=== PATIENT | male | born 1980 | race Caucasian/White ===

== ENCOUNTER 2018-09-12 12:52 | Emergency (ER) | payer SELFPAY ==
--- NOTE | 2018-09-12 13:17 | ER Document Report ---
ED General - General Stated Complaint: PSYCH Time Seen by Provider: 09/12/18 13:08 Notes: Patient is a 37-year-old male with history of bipolar disorder that presents to the emergency department for chief complaint of psychiatric issues. Patient apparently has been off of his medication for total 2 weeks, was at a store today, was "talking to a twig" according to bystanders, and he was hyperventilating and diaphoretic per EMS, he was given a dose of 25 mg of Benad ryl, 1 mg of Ativan, and 5 mill grams of Haldol. At this time the patient is withdrawn, not wanting to answer many questions. He denies any complaints at this time, denies suicidal or homicidal ideations, denies hearing any voices, or having any delusions. He denies any recent illnesses, fevers, chills, cough, nausea, vomiting or abdominal pain. He reports that he was previously on Seroquel, 400 mg and he would take a third of a tablet at night to help him sleep. Past Medical History: Bipolar disorder Past Surgical History: Denies pertinent surgical history Social History: Admits to smoking cigarettes, denies alcohol or drug use. Family History: Reviewed and noncontributory for presenting illness Allergies: Reviewed, see documented allergy list. REVIEW OF SYSTEMS: Other than noted above, the 12 point review of systems was reviewed with the patient and were negative, all pertinent findings are included in the HPI. PHYSICAL EXAMINATION: Vital signs reviewed, nursing noted reviewed. GENERAL: Well-appearing, well-nourished and in no acute distress. HEAD: Atraumatic, normocephalic. EYES: Eyes appear normal, extraocular movements intact, sclera anicteric, conjunctiva are normal. ENT: nares patent, oropharynx clear without exudates. Moist mucous membranes. NECK: Normal range of motion, supple without lymphadenopathy LUNGS: Breath sounds clear to auscultation bilaterally and equal. No wheezes rales or rhonchi. HEART: Regular rate and rhythm without murmurs ABDOMEN: Soft, nontender, normoactive bowel sounds. No rebound, guarding, or rigidity. No masses appreciated. EXTREMITIES: Nontender, good range of motion, no pitting or edema. NEUROLOGICAL: No focal neurological deficits. Moves all extremities spontaneously Motor and sensory grossly intact on exam. PSYCH: Withdrawn, flat affect SKIN: Warm, Dry, normal turgor, no rashes or lesions noted on exposed skin - Related Data Allergies/Adverse Reactions: No Known Allergies Allergy (Verified 09/12/18 13:18) Past Medical History - Social History Smoking Status: Current Every Day Smoker Family History: Reviewed & Not Pertinent Course - Re-evaluation Re-evalutation: Patient seen and examined, vital signs reviewed. Medical screening testing was ordered including bloodwork, EKG, and toxicology. Results of testing were reviewed. Testing demonstrated positive for THC, no other drugs are positive on the urine drug screen, the rest of his blood work demonstrated mild elevation in creatinine, possibly due to mild dehydration, however patient is able to take p.o., will encourage oral hydration, his potassium was 3.5, only slightly low, again would encourage oral intake, and a meal. Patient has been stable from a hemodynamic standpoint. Patient diagnosis unclear at this time, he has been off of his medication, but is not speaking although clearly, and occasionally is nonsensical, will defer to see how the patient is doing after medications administered by EMS wear off, and repeat evaluation, he is cleared as noted below from my standpoint medically, but will need further evaluation from the behavioral health team. At this point I feel that the patient is medically cleared and can be further evaluated from a psychiatric standpoint for final disposition from the emergency department. Patient updated on plan of care. Laboratory 09/12/18 09/12/18 09/12/18 13:20 13:20 14:00 WBC 9.5 RBC 4.86 Hgb 15.0 Hct 42.6 MCV 88 MCH 30.9 MCHC 35.2 RDW 13.1 Plt Count 260 Seg Neutrophils % 74.3 Lymphocytes % 15.1 Monocytes % 10.2 Eosinophils % 0.1 Basophils % 0.3 Absolute Neutrophils 7.0 Absolute Lymphocytes 1.4 Absolute Monocytes 1.0 Absolute Eosinophils 0.0 Absolute Basophils 0.0 Sodium 144.6 Potassium 3.5 L Chloride 107 Carbon Dioxide 18 L Anion Gap 20 H BUN 17 Creatinine 1.30 H Est GFR ( Amer) > 60 Est GFR (Non-Af Amer) > 60 Glucose 96 Calcium 10.2 Total Bilirubin 1.2 Direct Bilirubin 0.2 Neonat Total Bilirubin Not Reportable Neonat Direct Bilirubin Not Reportable Neonat Indirect Bili Not Reportable AST 31 ALT 23 Alkaline Phosphatase 47 Total Protein 7.6 Albumin 4.9 Urine Color STEVE Urine Appearance CLOUDY Urine pH 5.0 Ur Specific [place] 1.029 Urine Protein 100 H Urine Glucose (UA) 150 H Urine Ketones NEGATIVE Urine Blood NEGATIVE Urine Nitrite NEGATIVE Urine Bilirubin NEGATIVE Urine Urobilinogen 2.0 H Ur Leukocyte Esterase NEGATIVE Urine WBC (Auto) 3 Urine RBC (Auto) 1 U Hyaline Cast (Auto) 2 Urine Mucus (Auto) MANY Urine Ascorbic Acid NEGATIVE Salicylates < 1.0 L Urine Opiates Screen Urine Methadone Screen Acetaminophen < 10 L Ur Barbiturates Screen Ur Phencyclidine Scrn Ur Amphetamines Screen U Benzodiazepines Scrn Urine Cocaine Screen U Marijuana (THC) Screen Serum Alcohol < 10 09/12/18 14:00 WBC RBC Hgb Hct MCV MCH MCHC RDW Plt Count Seg Neutrophils % Lymphocytes % Monocytes % Eosinophils % Basophils % Absolute Neutrophils Absolute Lymphocytes Absolute Monocytes Absolute Eosinophils Absolute Basophils Sodium Potassium Chloride Carbon Dioxide Anion Gap BUN Creatinine Est GFR ( Amer) Est GFR (Non-Af Amer) Glucose Calcium Total Bilirubin Direct Bilirubin Neonat Total Bilirubin Neonat Direct Bilirubin Neonat Indirect Bili AST ALT Alkaline Phosphatase Total Protein Albumin Urine Color Urine Appearance Urine pH Ur Specific [place] Urine Protein Urine Glucose (UA) Urine Ketones Urine Blood Urine Nitrite Urine Bilirubin Urine Urobilinogen Ur Leukocyte Esterase Urine WBC (Auto) Urine RBC (Auto) U Hyaline Cast (Auto) Urine Mucus (Auto) Urine Ascorbic Acid Salicylates Urine Opiates Screen NEGATIVE Urine Methadone Screen NEGATIVE Acetaminophen Ur Barbiturates Screen NEGATIVE Ur Phencyclidine Scrn NEGATIVE Ur Amphetamines Screen NEGATIVE U Benzodiazepines Scrn NEGATIVE Urine Cocaine Screen NEGATIVE U Marijuana (THC) Screen UNCONFIRMED POSITIVE Serum Alcohol - Laboratory Result Diagrams: 09/12/18 13:20 09/12/18 13:20 Laboratory results interpreted by me: 09/12/18 09/12/18 13:20 14:00 Potassium 3.5 L Carbon Dioxide 18 L Anion Gap 20 H Creatinine 1.30 H Urine Protein 100 H Urine Glucose (UA) 150 H Urine Urobilinogen 2.0 H Salicylates < 1.0 L Acetaminophen < 10 L - EKG Interpretation by Me Additional EKG results interpreted by me: EKG demonstrates normal sinus rhythm with a ventricular rate of 91 bpm, normal axis, QTC 450 ms, no ST elevation, no prior for comparison at this time. Discharge - Discharge Clinical Impression: Psychosis Qualifiers: Psychosis type: unspecified psychosis type Qualified Code(s): F29 - Unspecified psychosis not due to a substance or known physiological condition Condition: Stable Disposition: PSYCH HOSP/UNIT
[2018-09-12 13:35] LABS: ABSOLUTE LYMPHOCYTES (AUTO) 1.4 10^3/uL (0.5-4.7); BASOPHILS % (AUTO) 0.3 % (0-2); EOSINOPHILS % (AUTO) 0.1 % (0-6); HEMATOCRIT 42.6 % (37.9-51.0); LYMPHOCYTES % (AUTO) 15.1 % (13-45); MEAN CORPUSCULAR HEMOGLOBIN 30.9 pg (27.0-33.4); MEAN CORPUSCULAR HGB CONC 35.2 g/dL (32.0-36.0); MEAN CORPUSCULAR VOLUME 88 fl (80-97); MONOCYTES % (AUTO) 10.2 % (3-13); PLATELET COUNT 260 10^3/uL (150-450); RED BLOOD COUNT 4.86 10^6/uL (4.35-5.55); RED CELL DISTRIBUTION WIDTH 13.1 % (11.5-14.0); SEGMENTED NEUTROPHILS % (AUTO) 74.3 % (42-78); TOTAL CELLS COUNTED % (AUTO) 100 %; WHITE BLOOD COUNT 9.5 10^3/uL (4.0-10.5)
[2018-09-12 13:53] LABS: ALANINE AMINOTRANSFERASE 23 U/L (21-72); ALBUMIN 4.9 g/dL (3.5-5.0); ALKALINE PHOSPHATASE 47 U/L (38-126); ASPARTATE AMINO TRANSFERASE 31 U/L (17-59); BILIRUBIN,DIRECT 0.2 mg/dL (0.0-0.4); BILIRUBIN,TOTAL 1.2 mg/dL (0.2-1.3); BLOOD UREA NITROGEN 17 mg/dL (7-20); CALCIUM 10.2 mg/dL (8.4-10.2); CARBON DIOXIDE 18 mmol/L (22-30); CHLORIDE 107 mmol/L (98-107); GLUCOSE 96 mg/dL (75-110); POTASSIUM 3.5 mmol/L (3.6-5.0); SODIUM 144.6 mmol/L (137-145); TOTAL PROTEIN 7.6 g/dL (6.3-8.2)
[2018-09-12 13:54] LABS: ACETAMINOPHEN < 10 ug/mL (10-30); ALCOHOL < 10 mg/dL (NONE DETECTED); ANION GAP 20 (5-19); SALICYLATE < 1.0 mg/dL (2.0-20.0)
[2018-09-12 14:59] LABS: URINE AMPHETAMINES SCREEN NEGATIVE; URINE BARBITURATES SCREEN NEGATIVE; URINE BENZODIAZEPINES SCREEN NEGATIVE; URINE COCAINE SCREEN NEGATIVE; URINE MARIJUANA (THC) SCREEN UNCONFIRMED POSITIVE; URINE METHADONE SCREEN NEGATIVE; URINE PHENCYCLIDINE SCREEN NEGATIVE
[2018-09-12 15:10] LABS: APPEARANCE,URINE CLOUDY; BILIRUBIN,URINE NEGATIVE (NEGATIVE); COLOR,URINE AMBER; GLUCOSE, URINE 150 mg/dL (NEGATIVE); KETONES,URINE NEGATIVE (NEGATIVE); LEUKOCYTE ESTERASE,URINE NEGATIVE (NEGATIVE); NITRITE,URINE NEGATIVE (NEGATIVE); PROTEIN,URINE 100 mg/dL (NEGATIVE); URINE SPECIFIC GRAVITY 1.029
--- NOTE | 2018-09-12 15:27 | PSYCHOLOGICAL NOTE ---
Psych Note - Psych Note Date seen by psych provider: 09/12/18 Time seen by psych provider: 13:10 - 1320 Psych Note: Reason for Consult: Manic Patient is a 37-year-old male with history of bipolar disorder that presents to the emergency department for chief complaint of psychiatric issues. EMS reported the patient was picked up from [place]. He was walking around talking to twdainel, stating it was gould to a realm. Patient reports he "starts his morning at the [employer]" and that's why he was there. Patient reports that he has been off his medication for approximately 2 weeks. He states that he is prescribed Seroquel. He denies currently having an outpatient mental health provider and states that after moving to [place] approximately 1 year ago, a family member was mailing him his Seroquel from his provider in a [place]. He reports that his provider in [place] is no longer providing his medications since he is n living in that area. Patient denies being homeless states that he has a safe place to live however is unable to articulate the address. Patient is unclear on why he came [facility]. When it was explained to the patient that there was some concerns with the patient was demonstrating thoughts that were not clear to others, the patient started to discuss how "the stick was not really a stick but a gould...a gould to something." Patient is alert and orientated to person and place. It is unclear if he is orientated to time and circumstance. Mood is overall euthymic with congruent affect however does become irritable when asked for urine. Patient is presenting with organized linear but illogical thought processes. Patient does not have any psychomotor agitation. Eye contact is poor. Conversational speech is within normal rate, tone and prosody. Intellectual abilities appear to be within the average range. Attention and concentration are fair. Insight, judgment, impulse control is fair. Medication recommendations per [facility]'s contracted psychiatrist Dr. Jhony HOLT as follows Restart home medication Seroquel 100mg every evening Bipolar per history provided by patient Impression/Plan: It is recommended for mental health hold for overnight observation. Patient presents with illogical on thought processes. He reports he has been off his medications for approximately 2 weeks. Medication recommendations are to restart home medications. Patient will be reevaluated. Dr. Haro was consulted to care management this patient; attending physicians in agreement with recommendations and disposition.
[2018-09-12] MEDS ORDERED: QUETIAPINE FUMARATE 100 MG TABLET PO SCH (22:00)
--- NOTE | 2018-09-12 23:26 | EKG REPORT ---
SEVERITY:- NORMAL ECG - SINUS RHYTHM : Confirmed by: Beatriz Richardson MD 12-Sep-2018 23:25:05
--- NOTE | 2018-09-13 08:38 | PSYCHOLOGICAL NOTE ---
Psych Note - Psych Note Date seen by psych provider: 09/13/18 Time seen by psych provider: 08:05 - 0810 Psych Note: Reason for Consult: Manic Patient is a 37-year-old male with history of bipolar disorder that presents to the emergency department for chief complaint of psychiatric issues. EMS reported the patient was picked up from [place]. He was walking around talking to twig, stating it was gould to a realm. Patient reports he "starts his morning at the [employer]" and that's why he was there. Check in conducted with patient Patient presents with euthymic mood and congruent affect as evidenced by smiling engaging with clinician. Patient originally presented with concerns of being in a manic state; however, the patient has not demonstrated any psychomotor agitation or pressured speech during his ED visit. Patient had been reportedly off his mental health medications for approximately 2 weeks. These have been restarted last night. Patient engaged in organized linear and logical conversation with clinician to discuss obtaining local outpatient mental health provider, economic resources, and discussed needing possible bridge prescription until being able to get into an outpatient provider as there is currently a significant wait list for most outpatient mental health providers. Patient denies thoughts of wanting to hurt himself or others and denies hallucinations. Patient makes good eye contact. Medication recommendations per [facility]'s contracted psychiatrist Dr. Jhony HOLT as follows Restart home medication Seroquel 100mg every evening Bipolar per history provided by patient Impression/Plan: Patient is cleared from acute psychiatric services. Patient presented originally with concerns of being in a manic state however throughout his entire [facility] ED visit he has not demonstrated any behaviors indicating romelia. Patient did originally present with some odd illogical conversational topics however was organized and linear. Patient has been restarted on his home medications and today is able to engage in organized, linear, and logical conversation. There is no evidence that the patient is responding to internal stimuli i.e. good eye contact, normal conversational speech, and organized linear thought processes. Clinician and patient discussed follow-up plan of care with the patient obtaining an outpatient mental health provider in the local community as he has not done this since moving from [place] to the local area. Patient received resources for local providers, in addition to the economic resource Street sheet. Dr. Haro was consulted to care management this patient; attending physicians in agreement with recommendations and disposition.
[2018-09-13 09:25] VITALS: BP 106/72
== END 2018-09-13 09:25 | disposition home or self-care (01) ==
LOC: ER 12:52
DX: F29 Unspecified psychosis not due to a substance or known physiological condition (principal); F31.9 Bipolar disorder, unspecified; Z79.899 Other long term (current) drug therapy
CPT/HCPCS: 36415; 80053; 80307; 81001; 85025; 93005; 93010; 99285

== ENCOUNTER 2018-10-15 17:32 | Emergency (ER) | payer SELFPAY ==
--- NOTE | 2018-10-15 17:59 | ER Document Report ---
ED Medical Screen (RME) - General Chief Complaint: Psych Problem Stated Complaint: ALTERED MENTAL STATUS Time Seen by Provider: 10/15/18 17:53 Notes: 37-year-old male presented to ED for mental health evaluation. He states he has a history of PTSD schizophrenia and other mental health problems. He states he came in yesterday but was not ready to be evaluated but today everything is come to ahead and is calm so now he is ready to be evaluated. Patient came in with mental health worker. He has a history of PTSD schizophrenia and everything is coming to ahead and making calm. He states he is ready to get evaluated and treated he was not ready yesterday. He denies suicidal or homicidal thoughts but states that his thoughts to hurt himself and others. Patient is having some trouble getting his thoughts together. I have greeted and performed a rapid initial assessment of this patient. A comprehensive ED assessment and evaluation of the patient, analysis of test results and completion of medical decision making process will be conducted by an additional ED providers. Dictation of this chart was performed using voice recognition software; therefore, there may be some unintended grammatical errors. - Related Data Allergies/Adverse Reactions: No Known Allergies Allergy (Verified 10/15/18 17:35) Past Medical History - Social History Frequency of alcohol use: None Drug Abuse: None Renal/ Medical History: Denies: Hx Peritoneal Dialysis Psychiatric Medical History: Reports: Hx Bipolar Disorder, Hx Depression, Hx Schizophrenia Physical Exam - Vital signs Vitals: Temp Pulse Resp BP Pulse Ox 97.7 F 71 16 139/89 H 98 10/15/18 17:43 10/15/18 17:43 10/15/18 17:43 10/15/18 17:43 10/15/18 17:43 Course - Vital Signs Vital signs: Temp Pulse Resp BP Pulse Ox 97.7 F 71 16 139/89 H 98 10/15/18 17:43 10/15/18 17:43 10/15/18 17:43 10/15/18 17:43 10/15/18 17:43
[2018-10-15 18:37] LABS: ABSOLUTE EOSINOPHILS # (AUTO) 0.1 10^3/uL (0.0-0.6); ABSOLUTE LYMPHOCYTES (AUTO) 2.3 10^3/uL (0.5-4.7); ABSOLUTE MONOCYTES (AUTO) 0.4 10^3/uL (0.1-1.4); ABSOLUTE NEUT (AUTO) 4.3 10^3/uL (1.7-8.2); BASOPHILS % (AUTO) 0.6 % (0-2); EOSINOPHILS % (AUTO) 1.1 % (0-6); HEMATOCRIT 42.4 % (37.9-51.0); HEMOGLOBIN 14.9 g/dL (13.5-17.0); LYMPHOCYTES % (AUTO) 32.2 % (13-45); MEAN CORPUSCULAR HEMOGLOBIN 31.5 pg (27.0-33.4); MEAN CORPUSCULAR HGB CONC 35.1 g/dL (32.0-36.0); MEAN CORPUSCULAR VOLUME 90 fl (80-97); PLATELET COUNT 236 10^3/uL (150-450); RED BLOOD COUNT 4.73 10^6/uL (4.35-5.55); RED CELL DISTRIBUTION WIDTH 13.5 % (11.5-14.0); SEGMENTED NEUTROPHILS % (AUTO) 60.1 % (42-78); TOTAL CELLS COUNTED % (AUTO) 100 %; WHITE BLOOD COUNT 7.2 10^3/uL (4.0-10.5)
--- NOTE | 2018-10-15 18:37 | ER Document Report ---
Addendum entered and electronically signed by MINISTERIO LEONARDO LCSWA 10/17/18 09:29: Discharge - Discharge Clinical Impression: Bipolar disorder with psychotic features Clinical Impression: (Ruled Out): Hallucinations, Schizophrenia Condition: Stable Disposition: HOME, SELF-CARE Additional Instructions: You have been evaluated by both medical and behavioral health teams and been deemed appropriate for discharge. You have been started on medication of Zyprexa and Cogentin and have been prescribed prescription; please take as directed. Zyprexa 5 mg twice daily Cogentin 1 mg daily You are encouraged to follow-up with outpatient mental health services and have been provided a resource list of area providers including mobile crisis contact information. Please contact your chosen provider in 3 to 5 days for an appointment. Bipolar Disorder Bipolar disorder is also called manic-depressive disorder. Depression alternates with brain hyperactivity called romelia. Each phase lasts from several days to a few weeks. We don't know exactly what causes bipolar disorder, but it's treatable. During the "manic phase," you may feel elated and energetic. You may have racing thoughts, rapid speech, increased activity, and grandiose ideas. During this time, you may not realize how poor your judgement is. Inappropriate spending, drug abuse, excessive alcohol use, marriage problems, and irresponsible sexual behavior are common during the manic phase. During the "depressive phase," you might feel depressed, guilty, worthless, fatigued, and unable to concentrate. You might have thoughts of suicide. Good treatments are available for bipolar disorder. [place] is a classic drug for bipolar disorder, and is still often useful. If the manic phase is very mild, an antidepressant alone can be prescribed. If the manic phase is very severe, an antipsychotic medicine (such as Haldol) may be needed. The treatment must be matched to your symptoms, so it's important to work closely with your psychiatric care provider. Contact your physician, the hospital emergency center, crisis line, or your counsellor if you are losing control or having self-destructive thoughts. Referrals: [facility] [Outside] - Follow up as needed [facility] [[facility]] - Follow up in 3-5 days Original Note: ED General - General Chief Complaint: Psych Problem Stated Complaint: ALTERED MENTAL STATUS Time Seen by Provider: 10/15/18 17:53 Notes: Patient is a 37-year-old male with schizophrenia that presents to the emergency department for chief complaint of hallucinations, vivid dreams, racing thoughts at times. Patient states that has been off of his medications for about 3 months, he was getting them from his previous provider in [place], but now is moved here, and he has not found a new psychiatrist. He states he was previously on Seroquel, taking 1/3 tablet at 400 mg. He is not currently taking anything. He denies any illicit drugs other than occasional marijuana. He has different delusions, as well, that are both times he thinks are real, and other times he understands that they are not real. He denies any suicidal or homicidal ideations at this time. He states he just wants to get better and stabilized on medications that he can function in society in a proper way. He is here today with the mobile dairy farm worker, because he felt that he was not doing well at home, and was seeking help. Past Medical History: Schizophrenia, depression, anxiety Past Surgical History: Denies recent or pertinent surgical history Social History: Admits to smoking cigarettes and occasional marijuana use, denies alcohol or illicit drug use. Family History: Reviewed and noncontributory for presenting illness Allergies: Reviewed, see documented allergy list. REVIEW OF SYSTEMS: Other than noted above, the 12 point review of systems was reviewed with the patient and were negative, all pertinent findings are included in the HPI. PHYSICAL EXAMINATION: Vital signs reviewed, nursing noted reviewed. GENERAL: Well-appearing, well-nourished and in no acute distress. HEAD: Atraumatic, normocephalic. EYES: Eyes appear normal, extraocular movements intact, sclera anicteric, conjunctiva are normal. ENT: nares patent, oropharynx clear without exudates. Moist mucous membranes. NECK: Normal range of motion, supple without lymphadenopathy LUNGS: Breath sounds clear to auscultation bilaterally and equal. No wheezes rales or rhonchi. HEART: Regular rate and rhythm without murmurs ABDOMEN: Soft, nontender, normoactive bowel sounds. No rebound, guarding, or rigidity. No masses appreciated. EXTREMITIES: Nontender, good range of motion, no pitting or edema. NEUROLOGICAL: No focal neurological deficits. Moves all extremities spontaneously Motor and sensory grossly intact on exam. PSYCH: Pleasant, answers her questions appropriately, occasionally has tangential thoughts and goes off on tangents but then catches himself, and redirects the conversation. SKIN: Warm, Dry, normal turgor, no rashes or lesions noted on exposed skin - Related Data Allergies/Adverse Reactions: No Known Allergies Allergy (Verified 10/15/18 17:35) Past Medical History - Social History Smoking Status: Current Every Day Smoker Frequency of alcohol use: None Drug Abuse: None Family History: Reviewed & Not Pertinent Patient has suicidal ideation: No Patient has homicidal ideation: Yes Renal/ Medical History: Denies: Hx Peritoneal Dialysis Psychiatric Medical History: Reports: Hx Bipolar Disorder, Hx Depression, Hx Schizophrenia Physical Exam - Vital signs Vitals: Temp Pulse Resp BP Pulse Ox 97.7 F 71 16 139/89 H 98 10/15/18 17:43 10/15/18 17:43 10/15/18 17:43 10/15/18 17:43 10/15/18 17:43 Course - Re-evaluation Re-evalutation: Patient seen and examined, vital signs reviewed. Medical screening testing was ordered including bloodwork, EKG, and toxicology. Results of testing were reviewed. Testing demonstrated essentially unremarkable blood work, positive for THC in the urine. Patient has been stable from a hemodynamic standpoint. At this point I feel that the patient is medically cleared and can be further evaluated from a psychiatric standpoint for final disposition from the emergency department. Patient is very pleasant on exam, he does seem to be having active delusions, is not currently on medication we will start him on Zyprexa 5 mg to see if he will benefit by the morning, patient was agreeable to this plan of care. Patient updated on plan of care. Laboratory 10/15/18 10/15/18 10/15/18 18:08 18:08 18:13 WBC 7.2 RBC 4.73 Hgb 14.9 Hct 42.4 MCV 90 MCH 31.5 MCHC 35.1 RDW 13.5 Plt Count 236 Seg Neutrophils % 60.1 Lymphocytes % 32.2 Monocytes % 6.0 Eosinophils % 1.1 Basophils % 0.6 Absolute Neutrophils 4.3 Absolute Lymphocytes 2.3 Absolute Monocytes 0.4 Absolute Eosinophils 0.1 Absolute Basophils 0.0 Sodium Potassium Chloride Carbon Dioxide Anion Gap BUN Creatinine Est GFR ( Amer) Est GFR (Non-Af Amer) Glucose Calcium Total Bilirubin Direct Bilirubin Neonat Total Bilirubin Neonat Direct Bilirubin Neonat Indirect Bili AST ALT Alkaline Phosphatase Total Protein Albumin Urine Color YELLOW Urine Appearance CLEAR Urine pH 6.0 Ur Specific [place] 1.024 Urine Protein NEGATIVE Urine Glucose (UA) NEGATIVE Urine Ketones NEGATIVE Urine Blood NEGATIVE Urine Nitrite NEGATIVE Urine Bilirubin NEGATIVE Urine Urobilinogen NEGATIVE Ur Leukocyte Esterase NEGATIVE Urine WBC (Auto) 1 Urine RBC (Auto) 0 Squamous Epi Cells Auto <1 Urine Mucus (Auto) MOD Urine Ascorbic Acid NEGATIVE Salicylates Urine Opiates Screen NEGATIVE Urine Methadone Screen NEGATIVE Acetaminophen Ur Barbiturates Screen NEGATIVE Ur Phencyclidine Scrn NEGATIVE Ur Amphetamines Screen NEGATIVE U Benzodiazepines Scrn NEGATIVE Urine Cocaine Screen NEGATIVE U Marijuana (THC) Screen UNCONFIRMED POSITIVE Serum Alcohol 10/15/18 18:13 WBC RBC Hgb Hct MCV MCH MCHC RDW Plt Count Seg Neutrophils % Lymphocytes % Monocytes % Eosinophils % Basophils % Absolute Neutrophils Absolute Lymphocytes Absolute Monocytes Absolute Eosinophils Absolute Basophils Sodium 140.6 Potassium 4.4 Chloride 105 Carbon Dioxide 26 Anion Gap 10 BUN 13 Creatinine 0.93 Est GFR ( Amer) > 60 Est GFR (Non-Af Amer) > 60 Glucose 95 Calcium 9.9 Total Bilirubin 1.0 Direct Bilirubin 0.3 Neonat Total Bilirubin Not Reportable Neonat Direct Bilirubin Not Reportable Neonat Indirect Bili Not Reportable AST 23 ALT 26 Alkaline Phosphatase 53 Total Protein 7.3 Albumin 4.7 Urine Color Urine Appearance Urine pH Ur Specific [place] Urine Protein Urine Glucose (UA) Urine Ketones Urine Blood Urine Nitrite Urine Bilirubin Urine Urobilinogen Ur Leukocyte Esterase Urine WBC (Auto) Urine RBC (Auto) Squamous Epi Cells Auto Urine Mucus (Auto) Urine Ascorbic Acid Salicylates < 1.0 L Urine Opiates Screen Urine Methadone Screen Acetaminophen < 10 L Ur Barbiturates Screen Ur Phencyclidine Scrn Ur Amphetamines Screen U Benzodiazepines Scrn Urine Cocaine Screen U Marijuana (THC) Screen Serum Alcohol < 10 - Vital Signs Vital signs: Temp Pulse Resp BP Pulse Ox 97.7 F 71 16 139/89 H 98 10/15/18 17:43 10/15/18 17:43 10/15/18 17:43 10/15/18 17:43 10/15/18 17:43 - Laboratory Result Diagrams: 10/15/18 18:13 10/15/18 18:13 Laboratory results interpreted by me: 10/15/18 18:13 Salicylates < 1.0 L Acetaminophen < 10 L - EKG Interpretation by Me Additional EKG results interpreted by me: EKG demonstrates sinus rhythm with a ventricular rate of 59 bpm, normal axis, normal intervals, no evidence of acute ischemia in this EKG, compared to prior EKG without significant change. Discharge - Discharge Clinical Impression: Hallucinations Schizophrenia Qualifiers: Schizophrenia type: unspecified Qualified Code(s): F20.9 - Schizophrenia, unspecified Condition: Stable Disposition: PSYCH HOSP/UNIT
--- NOTE | 2018-10-15 18:46 | EKG REPORT ---
SEVERITY:- NORMAL ECG - SINUS RHYTHM : Confirmed by: Rainer Atwood MD 15-Oct-2018 18:46:02
[2018-10-15 18:51] LABS: APPEARANCE,URINE CLEAR; BILIRUBIN,URINE NEGATIVE (NEGATIVE); COLOR,URINE YELLOW; GLUCOSE, URINE NEGATIVE (NEGATIVE); KETONES,URINE NEGATIVE (NEGATIVE); LEUKOCYTE ESTERASE,URINE NEGATIVE (NEGATIVE); NITRITE,URINE NEGATIVE (NEGATIVE); PROTEIN,URINE NEGATIVE (NEGATIVE); URINE SPECIFIC GRAVITY 1.024; UROBILINOGEN,URINE NEGATIVE mg/dL (<2.0)
[2018-10-15 18:58] LABS: ALANINE AMINOTRANSFERASE 26 U/L (21-72); ALBUMIN 4.7 g/dL (3.5-5.0); ALKALINE PHOSPHATASE 53 U/L (38-126); ANION GAP 10 (5-19); ASPARTATE AMINO TRANSFERASE 23 U/L (17-59); BILIRUBIN,DIRECT 0.3 mg/dL (0.0-0.4); BLOOD UREA NITROGEN 13 mg/dL (7-20); CALCIUM 9.9 mg/dL (8.4-10.2); CARBON DIOXIDE 26 mmol/L (22-30); CHLORIDE 105 mmol/L (98-107); GLUCOSE 95 mg/dL (75-110); POTASSIUM 4.4 mmol/L (3.6-5.0); SODIUM 140.6 mmol/L (137-145); TOTAL PROTEIN 7.3 g/dL (6.3-8.2)
[2018-10-15 18:59] LABS: URINE AMPHETAMINES SCREEN NEGATIVE; URINE BARBITURATES SCREEN NEGATIVE; URINE BENZODIAZEPINES SCREEN NEGATIVE; URINE COCAINE SCREEN NEGATIVE; URINE MARIJUANA (THC) SCREEN UNCONFIRMED POSITIVE; URINE METHADONE SCREEN NEGATIVE; URINE PHENCYCLIDINE SCREEN NEGATIVE
[2018-10-15 19:00] LABS: ACETAMINOPHEN < 10 ug/mL (10-30); ALCOHOL < 10 mg/dL (NONE DETECTED); SALICYLATE < 1.0 mg/dL (2.0-20.0)
[2018-10-15] MEDS ORDERED: OLANZAPINE 5 MG TABLET PO ONE (19:07)
--- NOTE | 2018-10-16 16:45 | PSYCHOLOGICAL NOTE ---
Psych Note - Psych Note Date seen by psych provider: 10/16/18 Time seen by psych provider: 09:20 - [id number] Psych Note: Reason for Consult: delusions Patient is a 37-year-old male with schizophrenia that presents to the emergency department for chief complaint of hallucinations, vivid dreams, racing thoughts at times. Patient is alert and orientated to person, place, time and circumstance. Mood is manic with congruent affect. Patient denies suicidal and homicidal i deations. Mixed delusions are noted and seem to be centered around [employer] i.e. believe he is a silver surfer, working with. Thought processes are organized and linear however illogical. Intellectual abilities appear to be within the average range. Attention and concentration are fair to poor. Insight, judgment, impulse control are poor. Bipolar; current manic Medication recommendations per [facility] contracted psychiatrist Dr. Jhony HOLT are as follow Zyprexa 10mg once thorazine 50mg every 8 hours as needed cogentin 1 daily Impression/plan: patient is recommended for IVC for over night mental health observation. Patient demonstrates romelia with delusions and has been off medications. Medication recommendations have been provided, patient will be re- evaluated. Dr. Haro was consulted on the care and management of this patient; attending physician is in agreement with recommendations and disposition.
[2018-10-16] MEDS ORDERED: OLANZAPINE 5 MG TABLET PO ONE (16:57)
[2018-10-16] MEDS ORDERED: CHLORPROMAZINE HCL 50 MG TABLET PO SCH (17:00)
[2018-10-16] MEDS ORDERED: CHLORPROMAZINE HCL 50 MG TABLET PO PRN (17:01)
--- NOTE | 2018-10-16 17:01 | ER Document Report ---
Doctor's Note Notes: 10/16/18 17:00 Patient's history, physical, lab work was reviewed. Notes by the psychology team were reviewed. Plan is to keep patient on involuntary commitment status at this time. He will be placed on Zyprexa 10 mg once now, Thorazine 50 mg Q8 as needed, and Cogentin 1 mg daily. To be reassessed tomorrow morning.
[2018-10-16] MEDS: BENZTROPINE MESYLATE 1 MG TABLET PO SCH (17:35)
--- NOTE | 2018-10-17 08:11 | PSYCHOLOGICAL NOTE ---
Psych Note - Psych Note Date seen by psych provider: 10/17/18 Time seen by psych provider: 07:50 Psych Note: Reason for Consult: delusions Patient is a 37-year-old male with schizophrenia that presents to the emergency department for chief complaint of hallucinations, vivid dreams, racing thoughts at times. Checking conducted with patient Patient is not demonstrating any behaviors indicating he is continued romelia. Patient was noted to have slept throughout the evening. Patient's mood is euthymic with congruent affect. Conversational speech is within normal rate, tone and prosody. Thought processes are organized and linear. Patient discusses filling his prescriptions and requests clinician to contact [facility] as they had mentioned to him when bringing him to [facility] that they would assist in coordinating transportation home upon discharge. Unspecified Bipolar Medication recommendations per [facility]'s contracted psychiatrist Dr. Jhony HOLT are as follow Zyprexa 5mg twice daily cogentin 1 daily Impression/plan: patient is recommended for rescind of IVC. Patient is no longer demonstrating a beers indicating romelia. Patient no longer meets IVC criteria per [place] GS 122C. Medication recommendations have been provided. Patient is highly encouraged to follow-up with outpatient mental health services and has been provided local resource list including mobile crisis contact information. Dr. Haro was consulted on the care and management of this patient; attending physician is in agreement with recommendations and disposition.
--- NOTE | 2018-10-17 09:47 | ER Document Report ---
Doctor's Note Notes: 10/17/18 09:45 This is a 37-year-old male who has been evaluated here in the emergency department. Initially had some hallucinations. These appear to be harmless at this time according to mental health. There does not appear to be criteria for continued IVC. Patient is currently no longer manic. He seemed to do quite well on Zyprexa and Cogentin so we will continue that as an outpatient. Patient has followed both services with [facility]. At this time will discharge in stable condition. Discharge - Discharge Clinical Impression: Bipolar disorder with psychotic features Condition: Stable Disposition: HOME, SELF-CARE Additional Instructions: You have been evaluated by both medical and behavioral health teams and been deemed appropriate for discharge. You have been started on medication of Zyprexa and Cogentin and have been prescribed prescription; please take as directed. Zyprexa 5 mg twice daily Cogentin 1 mg daily You are encouraged to follow-up with outpatient mental health services and have been provided a resource list of area providers including mobile crisis contact information. Please contact your chosen provider in 3 to 5 days for an appointment. Bipolar Disorder Bipolar disorder is also called manic-depressive disorder. Depression alternates with brain hyperactivity called romelia. Each phase lasts from several days to a few weeks. We don't know exactly what causes bipolar disorder, but it's treatable. During the "manic phase," you may feel elated and energetic. You may have racing thoughts, rapid speech, increased activity, and grandiose ideas. During this time, you may not realize how poor your judgement is. Inappropriate spending, drug abuse, excessive alcohol use, marriage problems, and irresponsible sexual behavior are common during the manic phase. During the "depressive phase," you might feel depressed, guilty, worthless, fatigued, and unable to concentrate. You might have thoughts of suicide. Good treatments are available for bipolar disorder. [place] is a classic drug for bipolar disorder, and is still often useful. If the manic phase is very mild, an antidepressant alone can be prescribed. If the manic phase is very severe, an antipsychotic medicine (such as Haldol) may be needed. The treatment must be matched to your symptoms, so it's important to work closely with your psychiatric care provider. Contact your physician, the hospital emergency center, crisis line, or your counsellor if you are losing control or having self-destructive thoughts. Prescriptions: Benztropine Mesylate [Cogentin 1 mg Tablet] 1 mg PO DAILY 14 Days #14 tablet Olanzapine [Zyprexa 5 mg Tablet] 5 mg PO Q12 14 Days #28 tablet Referrals: [facility] [Outside] - Follow up in 3-5 days [facility] [Outside] - Follow up as needed
[2018-10-17] MEDS: BENZTROPINE MESYLATE 1 MG TABLET PO SCH (10:01)
[2018-10-17 10:19] VITALS: BP 123/81
== END 2018-10-17 10:27 | disposition home or self-care (01) ==
LOC: ER 17:32
DX: F31.89 Other bipolar disorder (principal); F20.9 Schizophrenia, unspecified; F17.210 Nicotine dependence, cigarettes, uncomplicated
CPT/HCPCS: 36415; 80053; 80307; 81001; 85025; 93005; 93010; 99285

== ENCOUNTER 2018-10-29 17:11 | Emergency (ER) | payer SELFPAY ==
[2018-10-29 17:52] LABS: ABSOLUTE BASOPHILS # (AUTO) 0.1 10^3/uL (0.0-0.2); ABSOLUTE LYMPHOCYTES (AUTO) 2.1 10^3/uL (0.5-4.7); ABSOLUTE MONOCYTES (AUTO) 0.6 10^3/uL (0.1-1.4); ABSOLUTE NEUT (AUTO) 7.7 10^3/uL (1.7-8.2); BASOPHILS % (AUTO) 0.7 % (0-2); EOSINOPHILS % (AUTO) 0.2 % (0-6); HEMOGLOBIN 16.4 g/dL (13.5-17.0); LYMPHOCYTES % (AUTO) 20.2 % (13-45); MEAN CORPUSCULAR HEMOGLOBIN 30.7 pg (27.0-33.4); MEAN CORPUSCULAR HGB CONC 34.9 g/dL (32.0-36.0); MEAN CORPUSCULAR VOLUME 88 fl (80-97); MONOCYTES % (AUTO) 5.8 % (3-13); PLATELET COUNT 270 10^3/uL (150-450); RED BLOOD COUNT 5.34 10^6/uL (4.35-5.55); RED CELL DISTRIBUTION WIDTH 13.7 % (11.5-14.0); SEGMENTED NEUTROPHILS % (AUTO) 73.1 % (42-78); TOTAL CELLS COUNTED % (AUTO) 100 %; WHITE BLOOD COUNT 10.6 10^3/uL (4.0-10.5)
[2018-10-29 18:08] LABS: ALANINE AMINOTRANSFERASE 26 U/L (21-72); ALBUMIN 5.1 g/dL (3.5-5.0); ALKALINE PHOSPHATASE 68 U/L (38-126); ANION GAP 17 (5-19); ASPARTATE AMINO TRANSFERASE 23 U/L (17-59); BILIRUBIN,DIRECT 0.4 mg/dL (0.0-0.4); BLOOD UREA NITROGEN 13 mg/dL (7-20); CALCIUM 10.8 mg/dL (8.4-10.2); CARBON DIOXIDE 16 mmol/L (22-30); CHLORIDE 106 mmol/L (98-107); GLUCOSE 137 mg/dL (75-110); POTASSIUM 3.7 mmol/L (3.6-5.0); SODIUM 139.4 mmol/L (137-145); TOTAL PROTEIN 7.8 g/dL (6.3-8.2)
[2018-10-29 18:09] LABS: ACETAMINOPHEN < 10 ug/mL (10-30); ALCOHOL < 10 mg/dL (NONE DETECTED); SALICYLATE < 1.0 mg/dL (2.0-20.0)
[2018-10-29] MEDS ORDERED: OLANZAPINE INJ/PF 10 MG SDV IM ONE (19:55)
[2018-10-29 21:43] LABS: APPEARANCE,URINE SLIGHTLY-CLOUDY; BILIRUBIN,URINE NEGATIVE (NEGATIVE); COLOR,URINE YELLOW; GLUCOSE, URINE NEGATIVE (NEGATIVE); KETONES,URINE 20 mg/dL (NEGATIVE); LEUKOCYTE ESTERASE,URINE SMALL (NEGATIVE); NITRITE,URINE NEGATIVE (NEGATIVE); PROTEIN,URINE NEGATIVE (NEGATIVE); URINE SPECIFIC GRAVITY 1.016; UROBILINOGEN,URINE NEGATIVE mg/dL (<2.0)
[2018-10-29 21:50] LABS: URINE BARBITURATES SCREEN NEGATIVE; URINE BENZODIAZEPINES SCREEN NEGATIVE; URINE COCAINE SCREEN NEGATIVE; URINE MARIJUANA (THC) SCREEN UNCONFIRMED POSITIVE; URINE METHADONE SCREEN NEGATIVE; URINE PHENCYCLIDINE SCREEN NEGATIVE
--- NOTE | 2018-10-30 03:28 | ER Document Report ---
Addendum entered and electronically signed by CHANTEL RAMOS MD 10/31/18 09:34: Discharge - Discharge Clinical Impression: Methamphetamine intoxication Condition: Stable Disposition: HOME, SELF-CARE Additional Instructions: You have been evaluated both medical and behavioral health teams and been deemed appropriate for discharge. You are highly encouraged to abstain from using methamphetamines or any other illegal substances. Please take your prescribed medication as directed and follow-up with your outpatient mental health provider in 3 to 5 days for continued outpatient mental health services. AMPHETAMINE / METHAMPHETAMINE ABUSE: Amphetamines are addicting stimulants. Amphetamines overstimulate the nervous system and give a false feeling of power and mastery. These drugs may be obtained as prescription pills for weight loss, narcolepsy, or attention-deficit disorder. More often they're bought as an illegal street drug, methamphetamine (crank, crystal, speed). Using amphetamines repeatedly can lead to serious medical problems including malnutrition, severe depression, and paranoia. It can take increasing amounts to feel good. Eventually, there will be a "burn out." When you go off amphetamines there is a period of depression that may last for weeks or even months. High doses of amphetamines can cause seizures, confusion, hallucinations, delusions, high blood pressure, muscle damage, heart damage, or sudden . Many times these deadly complications occur even with "normal" doses. Injection of amphetamines is risky for developing abscesses, endocarditis (heart infection), pneumonia, and AIDS. Withdrawal from amphetamines often causes anxiety, depression, and drug cravings. Some users become paranoid and psychotic. There may be cramps, nausea, and vomiting. Many treatment programs are available, but you must make the decision to quit. Medication can be prescribed to control the symptoms of amphetamine toxicity (beta blockers or benzodiazepines). Withdrawal symptoms may require tranquilizers. FOLLOW-UP CARE: If you have been referred to a physician for follow-up care, call the physicians office for an appointment as you were instructed or within the next two days. If you experience worsening or a significant change in your symptoms, notify the physician immediately or return to the Emergency Department at any ti me for re-evaluation. Referrals: [facility] [Outside] - Follow up in 3-5 days [facility] [Outside] - Follow up as needed Addendum entered and electronically signed by MINISTERIO LEONARDO LCSWA 10/31/18 09:18: Discharge - Discharge Clinical Impression: Methamphetamine intoxication Clinical Impression: (Ruled Out): Bipolar affective psychosis Condition: Stable Disposition: HOME, SELF-CARE Additional Instructions: You have been evaluated both medical and behavioral health teams and been deemed appropriate for discharge. You are highly encouraged to abstain from using methamphetamines or any other illegal substances. Please take your prescribed medication as directed and follow-up with your outpatient mental health provider in 3 to 5 days for continued outpatient mental health services. AMPHETAMINE / METHAMPHETAMINE ABUSE: Amphetamines are addicting stimulants. Amphetamines overstimulate the nervous system and give a false feeling of power and mastery. These drugs may be obtained as prescription pills for weight loss, narcolepsy, or attention-deficit disorder. More often they're bought as an illegal street drug, methamphetamine (crank, crystal, speed). Using amphetamines repeatedly can lead to serious medical problems including malnutrition, severe depression, and paranoia. It can take increasing amounts to feel good. Eventually, there will be a "burn out." When you go off amphetamines there is a period of depression that may last for weeks or even months. High doses of amphetamines can cause seizures, confusion, hallucinations, delusions, high blood pressure, muscle damage, heart damage, or sudden . Many times these deadly complications occur even with "normal" doses. Injection of amphetamines is risky for developing abscesses, endocarditis (heart infection), pneumonia, and AIDS. Withdrawal from amphetamines often causes anxiety, depression, and drug cravings. Some users become paranoid and psychotic. There may be cramps, nausea, and vomiting. Many treatment programs are available, but you must make the decision to quit. Medication can be prescribed to control the symptoms of amphetamine toxicity (beta blockers or benzodiazepines). Withdrawal symptoms may require tranquilizers. FOLLOW-UP CARE: If you have been referred to a physician for follow-up care, call the physicians office for an appointment as you were instructed or within the next two days. If you experience worsening or a significant change in your symptoms, notify the physician immediately or return to the Emergency Department at any time for re-evaluation. Referrals: [facility] [Outside] - Follow up as needed [facility] [Outside] - Follow up in 3-5 days Original Note: ED General - General Chief Complaint: Psych Problem Stated Complaint: PSYCH EVAL Time Seen by Provider: 10/29/18 19:30 TRAVEL OUTSIDE OF THE [place] IN LAST 30 DAYS: No - HPI Notes: Patient is a 37-year-old male with a history of bipolar disorder with psychotic features who presents for psychiatric evaluation. The patient is in the midst of a significant psychosis at this time. He cannot really offer me any meaningful history. He states to me that he earlier today. He states he does not want to look into my eyes, as he is sure that he will have complete and total control over me if he does. He asks that I watch while he is simulates the metal from the doorknob into his body. He states he is also able to heel himself. I asked him if he takes his medications, as he was recently seen here and prescribed Zyprexa and Cogentin. He states "I do not need medicine, I am ." - Related Data Allergies/Adverse Reactions: No Known Allergies Allergy (Verified 10/15/18 17:35) Past Medical History - General Information source: [facility] Records - Social History Smoking Status: Current Every Day Smoker Chew tobacco use (# tins/day): No Frequency of alcohol use: Occasional Drug Abuse: None Family History: Reviewed & Not Pertinent Patient has suicidal ideation: No Patient has homicidal ideation: No Renal/ Medical History: Denies: Hx Peritoneal Dialysis Psychiatric Medical History: Reports: Hx Bipolar Disorder, Hx Depression Review of Systems - Review of Systems -: Yes ROS unobtainable due to patient's medical condition Physical Exam - Notes Notes: Patient is an agitated 37-year-old male. He is walking around the room. He exhibits flight of ideas, clear delusions, but is intermittently cooperative with examiner. Head is normocephalic and appears atraumatic. Pupils are equal round, reactive to light. Oral mucosa is moist. Neck is supple without meningismus. Heart is regular rate and rhythm, lungs are clear to auscultate bilaterally. Abdomen soft, nontender, normoactive bowel sounds. Skin is warm and dry. Patient is awake and alert. He was all 4 extremities spontaneously. Course - Re-evaluation Re-evalutation: 10/30/18 03:28 Patient presents emergency department for evaluation. Laboratory investigations were obtained as per IVC protocol. He does have a mildly decreased bicarb, but renal function is still within normal limits. Otherwise laboratory investigations are not significantly abnormal. Patient does have a known history of bipolar disorder with psychotic features. He was medicated with Zyprexa, the patient was less agitated. He is medically cleared. Awaiting psychiatric consultation. - Laboratory Result Diagrams: 10/29/18 17:35 10/29/18 17:35 Laboratory results interpreted by me: 10/29/18 10/29/18 10/29/18 17:35 17:35 20:25 WBC 10.6 H Carbon Dioxide 16 L Glucose 137 H Calcium 10.8 H Total Bilirubin 2.0 H Albumin 5.1 H Urine Ketones 20 H Ur Leukocyte Esterase SMALL H Salicylates < 1.0 L Acetaminophen < 10 L - EKG Interpretation by Me Additional EKG results interpreted by me: 10/30/18 03:28 Sinus mechanism with a normal rate. Normal axis and intervals, no acute ST changes concerning for ischemia or infarction. Discharge - Discharge Clinical Impression: Bipolar affective psychosis Qualifiers: Active/Remission status: currently active Current bipolar episode type: manic Psychotic features: with psychotic features Condition: Stable Disposition: PSYCH HOSP/UNIT
--- NOTE | 2018-10-30 09:44 | ER Document Report ---
Doctor's Note Notes: 10/30/18 09:42 I have evaluated this pt. today and he has no c/o. He feels all of his needs are being met. His physical exam is normal. He will be assessed by psychiatry later today.
--- NOTE | 2018-10-30 10:11 | PSYCHOLOGICAL NOTE ---
Psych Note - Psych Note Date seen by psych provider: 10/30/18 Time seen by psych provider: 07:30 Psych Note: Reason for Consult: Psychosis Patient is a 37-year-old male with a history of bipolar disorder with psychotic features who presents for psychiatric evaluation. The patient presents in the midst of a significant psychosis at time of arrival per attending physician. Patient has a reported history of mental health and has not obtained an outpatient mental health provider after moving to [place] approximately 1 year ago. During a previous evaluations, he reported a family member was mailing him his Seroquel from his provider; however, his provider in [place] is no longer providing his medications since he is not living in that area. Patient currently is irritable and unwilling to full engage. Delusions are noted; patient has presented with baseline delusional thought processes during both previous evaluations however was always pleasant, calm and willing to engage. Diagnosis Methamphetamine intoxication Bipolar with psychotic features per history (clinician notes patient needs to have this diagnosis readdressed with outpatient mental health providers due to new evidence of the patient symptoms of psychosis (i.e. delusions) as it can correlate with long-term methamphetamine use). Medication recommendations per [facility]'s contracted psychiatrist Dr. Jhony HOLT as follows Haldol 5 mg every 6 hours Cogentin 1 mg twice daily Impression\plan: Patient is recommended for IVC petition for overnight mental health observation and medication while under the influence. The patient has been seen by this clinician and department previously, and was provided resources and prescriptions for medications. Today the patient presentation (i.e. mood and affect) is notably different from previous evaluations and toxicology screening that indicates methamphetamines. Medication recommendations have been provided. Patient will be reevaluated. Dr. Haro was consulted and care management of this patient; attending physicians in agreement with recommendations and disposition.
[2018-10-30] MEDS: HALOPERIDOL 5 MG TABLET PO SCH ×3 (11:30→23:20)
[2018-10-30] MEDS: BENZTROPINE MESYLATE 1 MG TABLET PO SCH (17:47)
[2018-10-31] MEDS: HALOPERIDOL 5 MG TABLET PO SCH (07:40)
--- NOTE | 2018-10-31 09:16 | PSYCHOLOGICAL NOTE ---
Psych Note - Psych Note Date seen by psych provider: 10/31/18 Time seen by psych provider: 07:30 Psych Note: Reason for Consult: Psychosis Patient is a 37-year-old male with a history of bipolar disorder with psychotic features who presents for psychiatric evaluation. Check In with Patient: Patient is no longer demonstrating behaviours indicating he is responding to internal stimuli. He openly engages with clinician and admits to using methamphetamine and a history of using. He reports he had not used in a long time and agrees that he should not use. Patient still is demonstrating some delusional thought processes; however, this is baseline for the patient, does not put him or others at harm, and he is actually willing to engage with clinician that is thoughts might be flawed. Patient is calm, with no psychomotor agitation. He is able to engage in problem solving ie plan of care and transportation home. Diagnosis Methamphetamine intoxication Bipolar with psychotic features per history (clinician notes patient needs to have this diagnosis readdressed with outpatient mental health providers due to new evidence of the patient symptoms of psychosis (i.e. delusions) as it can correlate with long-term methamphetamine use). No medication recommendations for discharge; patient has medication at home Impression\plan: Patient is recommended for rescind of IVC and is cleared from acute psychiatric services. Patient no longer is under the influence and does not continue to meet IVC criteria per [place] GS 122C. Patient has a history of baseline delusional thought processes; however, they do not put the patient or others in harm. He adamantly denies wanting to harm himself or others. Clinician provided psychoeducation on the importance of obtaining from illegal substances, the longer term effects (ie mental health, probable trigger to aicha ents baseline delusional thoughts processes). Patient reports he has he medication at home for his mental health and confirms he will take as prescribed and follow up with outpatient mental health services. Dr. Haro was consulted and care management of this patient; attending physicians in agreement with recommendations and disposition.
[2018-10-31] MEDS: BENZTROPINE MESYLATE 1 MG TABLET PO SCH (09:55)
[2018-10-31 10:21] VITALS: BP 120/80
--- NOTE | 2018-11-01 00:03 | EKG REPORT ---
SEVERITY:- NORMAL ECG - SINUS RHYTHM : Confirmed by: Abi Garcia 01-Nov-2018 00:02:41
== END 2018-10-31 10:53 | disposition home or self-care (01) ==
LOC: ER 17:11
DX: T43.625A Adverse effect of amphetamines, initial encounter (principal); F17.200 Nicotine dependence, unspecified, uncomplicated
CPT/HCPCS: 36415; 80053; 80307; 81001; 85025; 93005; 93010; 96372; 99285